=== PATIENT | female | born 1970 | race Caucasian/White ===

== ENCOUNTER → 2022-09-23 16:15 | Outpatient (BNVA) | payer MEDICAID, SELFPAY | PROVIDERS: PCP Nurse Practitioner Family; Visit Provider Nurse Practitioner Family | DX: E78.5 Hyperlipidemia, unspecified (principal); I10 Essential (primary) hypertension | CPT/HCPCS: 80053; 80061 ==

== ENCOUNTER 2022-12-12 02:00 | Emergency (ER) | payer BC, MEDICAID, SELFPAY ==
[2022-12-12 02:00] VITALS: BP 157/109; PULSE 88; RESP 24; O2SAT 99; BMI 43.8
--- NOTE | 2022-12-12 02:22 | XRR_ITS ---
PROCEDURE INFORMATION: Exam: XR Chest Exam date and time: 12/12/2022 2:35 AM Age: 52 years old Clinical indication: Other: Anxiety TECHNIQUE: Imaging protocol: Radiologic exam of the chest. Views: 1 view. Total images: 1 COMPARISON: No relevant prior studies available. FINDINGS: Lungs: Benign granulomatous disease of the lung is noted. Pleural spaces: Unremarkable. No pleural effusion. No pneumothorax. Heart/Mediastinum: Loop cardiac recorder present. Bones/joints: Unremarkable. XR/XR chest 1V portable [id number] IMPRESSION: No acute cardiopulmonary process.
--- NOTE | 2022-12-12 02:23 | W.ED.ANXIETY ---
HPI - Anxiety General: Chief Complaint: Anxiety Stated Complaint: ANXIETY Time Seen by Provider: 12/12/22 02:17 History of Present Illness: Patient is a 52-year-old female who comes to the ED with anxiety. Patient has a history of A-fib. Patient just witnessed her mother pass away after ACLS efforts earlier tonight here at hospital. Patient witnessed event and was very upset and emotional. She started feeling very anxious. She was able to calm down and while here in the ED room she says she is feeling a lot better and her anxiety attack is over. She denies any chest pain, shortness of breath or palpitations. Denies SI. Associated symptoms: Deny chest pain, chills, fever(s), headache(s), nausea, palpitations or vomiting Review of Systems Const: Denies: fever(s), chills or fatigue Eyes: Denies: change in vision or eye discomfort ENMT: Denies: throat pain, odynophagia, nasal discharge or nasal congestion Card: Denies: chest pain, palpitations, edema, swelling of feet/ankles, dyspnea on exertion or orthopnea Resp: Denies: dyspnea, productive cough or non-productive cough GI: Denies: abdominal pain, nausea, vomiting, diarrhea, constipation or hematochezia : Denies: flank pain, dysuria or hematuria Musc: Denies: neck pain, back pain or extremity swelling Skin/Breast: Denies: rash or new lesions Neuro: Denies: headache(s), numbness in extremities or weakness in extremities Psych: Reports: anxiety; Denies: suicidal ideation [facility] PFSH: Medical History Afib Anxiety Hyperlipidemia Hypertension Post hysterectomy menopause Family History Grandmother Diabetes Mother Hypertension Denies family history of Stroke Social History Smoking and tobacco status: current every day smoker cigarettes Packs smoked per day: 0.5 Years cigarettes smoked: 10 Alcohol intake: never Substance/Drug Use: never Adopted: No Lives independently: Yes Household members: family Physical Exam Const: COMMON NORMALS: no acute distress, patient oriented x3 and alert GENERAL APPEARANCE: cooperative and other (Patient is a little tearful) HENMT: COMMON NORMALS: normocephalic HEAD & SCALP: normocephalic MOUTH: Normal oral and palatal mucosa present THROAT: posterior oropharynx normal and uvula midline Neck/C-Spine: COMMON NORMALS: supple GENERAL: Yes normal visual inspection Resp: COMMON NORMALS: normal respiratory effort, No retractions, No use of accessory muscles and clear to auscultation bilaterally AUSCULTATION: clear to auscultation bilaterally Cardio: COMMON NORMALS: regular rate, S1 normal heart sound present, S2 normal heart sound present, No gallops present (Cardio), No clicks present (Cardio), No murmurs present (Cardio) and Peripheral pulses 2+ throughout RATE: regular rate RHYTHM: abnormal rhythm irregularly irregular HEART SOUNDS: S1 normal heart sound present and S2 normal heart sound present PERIPHERAL PULSES: Peripheral pulses 2+ throughout GI: COMMON NORMALS: Normal to inspection, nondistended, normoactive bowel sounds present, Soft to palpation, non-tender and no masses PALPATION: Yes Soft to palpation : COMMON NORMALS: Yes no CVA tenderness BLADDER/KIDNEY EXAM: Yes no CVA tenderness Back/Pelvis: COMMON NORMALS: no CVA tenderness Extremity: COMMON NORMALS: normal to inspection Neuro: COMMON NORMALS: patient oriented x3 SENSORIUM/ORIENTATION: Yes alert GAIT: Yes Normal gait present Skin: GENERAL SKIN EXAM: dry skin Course Vital Signs: Vital signs: Vital Signs Pulse Rate 88 12/12/22 02:00 Respiratory Rate 24 H 12/12/22 02:00 Blood Pressure 157/109 12/12/22 02:00 Pulse Oximetry 99 12/12/22 02:00 Oxygen Delivery Me thod Room Air 12/12/22 02:00 MDM - Anxiety Medical Decision Making Patient is a 52-year-old female who comes to the ED with anxiety. Patient has a history of A-fib. Patient just witnessed her mother pass away after ACLS efforts earlier tonight here at hospital. Patient witnessed event and was very upset and emotional. She started feeling very anxious. She was able to calm down and while here in the ED room she says she is feeling a lot better and her anxiety attack is over. She denies any chest pain, shortness of breath or palpitations. Denies SI. Vitals are stable. Exam of patient is benign and she is a little tearful when talking about her mother passing but rest of her exam is benign. Chest x-ray shows no acute findings. EKG shows normal sinus rhythm, [address] segment ovation or depression seen. Patient diagnosed with acute anxiety due to loss of mother. She was stable for discharge home and told to follow-up with her PCP in the next week for reevaluation. Return to ED precautions given. Patient understood and agreed with plan. EKG Data EKG 1: EKG interpretation date: 12/12/22 Interpretation: Normal sinus rhythm, 65 bpm, no ST segment elevation or depression seen. Discharge Plan Discharge Patient Disposition: Home Clinical Impression: Acute anxiety Condition: Stable Prescriptions: No Action levocetirizine 5 mg tablet 5 mg PO DAILY fluticasone propionate [Children's Flonase Allergy Rlf] 50 mcg/actuation spray,suspension 1 spray intranasal BID Rx Instructions: administer into each nostril multivitamin [Daily Multi-Vitamin] Tablet 1 tab PO DAILY losartan 50 mg tablet 50 mg PO DAILY Qty: 90 1RF metoprolol succinate 50 mg tablet extended release 24 hr 50 mg PO BID Qty: 90 1RF rosuvastatin 40 mg tablet 40 mg PO DAILY Qty: 90 1RF topiramate 25 mg tablet 25 mg PO TID Qty: 270 1RF venlafaxine 150 mg tablet extended release 24hr 150 mg PO DAILY Qty: 90 1RF cholecalciferol (vitamin D3) 50 mcg (2,000 unit) capsule 50 mcg PO DAILY Eliquis 5 mg tablet 5 mg PO BID Qty: 180 3RF Discharge Orders: Discharge ED (Routine); Ordered 12/12/22 Ordered By: Nate Faria Referrals: Isadora Jaime FNP [Primary Care Provider] - Discharge Diet: Regular Discharge Activity: Increase activity as tolerated Activity Restrictions/Additional Instructions: Follow-up with medical provider as directed in the next 5 to 7 days for reevaluation. Continue taking all home medications as previously prescribed. Return to the ER or your medical provider if condition worsens. Please read and understand discharge instructions. Thank you for choosing [facility] for your healthcare needs today. Please realize this is an emergency room and that we are providing you with a medical screening exam and this may not be complete and all inclusive of all the testing and or work up that you may need to determine your ailment or severity of your illness. It is very important that you follow up as instructed or that you return to the Emergency Department should you have concerns or if your condition changes or worsens in any way. Coding Level of Care Code ED [employer]able [employer] Engineer for Jose Hardin
--- NOTE | 2022-12-12 03:18 | ECG_ITS ---
[facility] Test Date: 2022-12-12 Pat Name: Elizabeth Sanchez Department: Room: Gender: Female [employer]: : 1970 Requested By: Nate Faria Order Number: [id number] Car MD: Tomy Fagan M.D. Measurements Intervals [place] Rate: 65 P: 52 DC: 159 QRS: 18 QRSD: 102 T: 48 QT: 408 QTc: 427 Interpretive Statements SINUS RHYTHM No previous ECG available for comparison Electronically Signed On 12-12-2022 14:01:26 CDT by Tomy Fagan M.D. [id number]
== END 2022-12-12 04:12 | disposition home or self-care (01) ==
PROVIDERS: Emergency Provider Physician Assistant; PCP Nurse Practitioner Family
DX: F41.9 Anxiety disorder, unspecified (principal); Z63.4 Disappearance and death of family member
CPT/HCPCS: 71045; 93005; 99284

== ENCOUNTER → 2023-04-05 14:43 | Outpatient (BNVA) | payer BC, MEDICAID, SELFPAY | PROVIDERS: PCP Nurse Practitioner Family; Visit Provider Nurse Practitioner Family | DX: E78.5 Hyperlipidemia, unspecified (principal); E11.9 Type 2 diabetes mellitus without complications; L65.9 Nonscarring hair loss, unspecified; I10 Essential (primary) hypertension; R53.83 Other fatigue | CPT/HCPCS: 80053; 80061; 84439; 84443; 84481; 85025 ==

== ENCOUNTER 2023-05-24 13:47 | Outpatient (CLI) | payer BC, MEDICAID, SELFPAY ==
--- NOTE | 2023-05-24 13:50 | MM_ITS ---
WS: [id number] BILATERAL 3D TOMOSYNTHESIS DIGITAL SCREENING MAMMOGRAPHY WITH CAD CLINICAL INFORMATION: Z00.00 - Encounter for general adult medical examination ... HISTORY: Screening mammogram. No current complaints. COMPARISON: 2021 TECHNIQUE: Bilateral CC and MLO views. FINDINGS: Scattered fibroglandular densities bilaterally. No suspicious focal mass, asymmetry, calcifications, or architectural distortion. No evidence of malignancy. Loop recorder LEFT chest. A few tiny incident al punctate calcifications. IMPRESSION: MM/[place] [id number] BI-RADS: 2-Benign FOLLOW UP: 1 Year Follow-up Recommend return to annual screening mammography.
== END 2023-05-24 13:48 | disposition home or self-care (01) ==
LOC: RAD 13:47
PROVIDERS: PCP Nurse Practitioner Family; Visit Provider Nurse Practitioner Family
DX: Z12.31 Encounter for screening mammogram for malignant neoplasm of breast (principal)
CPT/HCPCS: 77063; 77067

== ENCOUNTER → 2023-12-07 14:20 | Outpatient (BNVA) | payer OTHER, BC, MEDICAID, SELFPAY | PROVIDERS: PCP Nurse Practitioner Family; Visit Provider Nurse Practitioner Family | DX: I10 Essential (primary) hypertension (principal); R53.83 Other fatigue; L65.9 Nonscarring hair loss, unspecified | CPT/HCPCS: 80053; 82306; 82607; 83540; 84439; 84443; 85025 ==

== ENCOUNTER 2024-03-29 13:44 | Outpatient (CLI) | payer BC, MEDICAID, SELFPAY ==
--- NOTE | 2024-03-29 13:45 | USCV_ITS ---
Daniel Elizabeth Age: 54 Gender: F : 1970 Exam Date: 03/29/2024 13:52 Ordering Phys: Tomy Fagan M.D ([email or web address]) Technologist: Exam Location: [facility] Indication: sob cp BP: 125 / 74 HR: 76 Rhythm: Sinus Technical Quality: Adequate MEASUREMENTS (Male / Female) Normal Values 2D ECHO LV Diastolic Diameter PLAX 4.5 cm 4.2 - 5.9 / 3.9 - 5.3 cm IVS Diastolic Thickness 1.2 cm 0.6 - 1.0 / 0.6 - 0.9 cm IVS Systolic Thickness 1.6 cm LVPW Diastolic Thickness 1.2 cm 0.6 - 1.0 / 0.6 - 0.9 cm LVPW Systolic Thickness 1.6 cm LVOT Diameter 2.1 cm LV Ejection Fraction 2D Teich 69.8 % LV Ejection Fraction MOD 4C 65.6 % LV Ejection Fraction MOD 2C 60.5 % LV Ejection Fraction 2C AL 60.3 % LA Diameter 4.0 cm RA Systolic Volume 4C AL 42.9 ml RA Systolic Volume 4C MOD 42.9 ml Aorta at Sinotubular Diameter 3.5 cm IVC Diameter 2.2 cm M-MODE LA Ao Ratio MM 1.3 AV Cusp Separation MM 2.6 cm DOPPLER AV Peak Velocity 150.0 cm/s LVOT Peak Velocity 115.0 cm/s AV Area Cont Eq vti 3.0 cm squared AV Area Cont Eq pk 2.8 cm squared MV Peak Velocity 108.0 cm/s MV Area PHT 3.9 cm squared Mitral E to A Ratio 1.3 TV Peak Velocity 250.0 cm/s TR Peak Velocity 367.0 cm/s TR Peak Gradient 53.9 mmHg TV Peak E Velocity 98.0 cm/s Right Atrial Pressure 3.0 mmHg Pulmonary Artery Systolic Pressu 56.9 mmHg PV Peak Velocity 136.0 cm/s FINDINGS Left Ventricle Left ventricle is normal in size. LV systolic function is normal with EF of 60-65%. No regional wall motion abnormalities are seen. Right Ventricle Normal in size and function Right Atrium Normal in size Left Atrium Normal in size Mitral Valve Structurally normal mitral valve. Mild mitral regurgitation. Aortic Valve Structurally normal aortic valve. No significant stenosis or regurgitation. Tricuspid Valve Mild tricuspid regurgitation. Insufficient TR jet to calculate RVSP Pulmonic Valve Not well visualized Pericardium Normal Aorta Normal in size IVC Appears to be normal CONCLUSIONS LV systolic function is normal with EF of 60 to 65%. Mild mitral regurgitation. Mild tricuspid regurgitation. No comparison studies are available. Tomy Fagan MD (Electronically Signed) Final Date: 30 March 2024 12:34 S
== END 2024-03-29 13:45 | disposition home or self-care (01) ==
LOC: RAD 13:44
PROVIDERS: PCP Nurse Practitioner Family; Visit Provider Internal Medicine
DX: R07.9 Chest pain, unspecified (principal); R06.02 Shortness of breath
CPT/HCPCS: 93306

== ENCOUNTER → 2024-04-04 11:51 | Outpatient (BNVA) | payer BC, MEDICAID, SELFPAY | PROVIDERS: PCP Nurse Practitioner Family; Visit Provider Nurse Practitioner Family | DX: N89.8 Other specified noninflammatory disorders of vagina (principal) | CPT/HCPCS: 87070; 87205 ==

== ENCOUNTER → 2025-01-08 15:56 | Outpatient (BNVA) | payer BC, MEDICAID, SELFPAY | PROVIDERS: PCP Nurse Practitioner Family; Visit Provider Nurse Practitioner Family | DX: I10 Essential (primary) hypertension (principal); R53.83 Other fatigue; E55.9 Vitamin D deficiency, unspecified | CPT/HCPCS: 80053; 80061; 82306; 84443; 85025 ==